=== PATIENT | male | born 1960 | race Caucasian/White ===

== ENCOUNTER 2020-05-11 01:50 | Outpatient (CLI) | payer OTHER, SELFPAY ==
[2020-05-11 18:54] LABS: SARS-CoV-2 RNA PCR Negative
== END 2020-05-11 01:51 | disposition home or self-care (01) ==
LOC: ANHCOVIDDT 01:51
PROVIDERS: PCP Family Medicine Adolescent Medicine; Visit Provider Surgery
DX: Z01.812 Encounter for preprocedural laboratory examination (principal); Z20.828 Contact with and (suspected) exposure to other viral communicable diseases
CPT/HCPCS: 87635; C9803; U0003

== ENCOUNTER 2020-05-13 00:34 | Day surgery (SDC) | payer OTHER, SELFPAY ==
[2020-04-30 12:50] VITALS: BMI 31.7
[2020-05-13] VITALS (7 sets, daily range): BP systolic 104–119; BP diastolic 66–73; PULSE 64–79; RESP 12–20; TEMP 36.1–36.3; O2SAT 98–100
--- NOTE | 2020-05-13 10:05 | WPDANESEPPF ---
Anes - Initial Pre Proc Eval Procedure: Operation Date: 05/13/20 12:00 Proposed Procedures p Rectal Exam Under Anesthesia With Hemorrhoidectomy - Tamy Bartlett MD Date/Time: 05/13/20 10:05 Surgeon: Tamy Bartlett MD Pre Op Diagnosis: Rectal Pain With Internal and External Hemrrhoids Patient Data Age: 59 Gender: M Height: 1.83 m Weight: 106.14 kg Last Vital Signs Temp 36.1 C L 05/13/20 09:52 Pulse 77 05/13/20 09:52 Resp 20 05/13/20 09:52 BP 119/69 05/13/20 09:52 Pulse Ox 98 05/13/20 09:52 Allergies Allergy/AdvReac Type Severity Reaction Status Date / Time No Known Allergies Allergy Verified 05/13/20 10:02 Home Medications Medication Instructions Recorded Confirmed Type esomeprazole magnesium 20 mg 20 mg PO DAILY 04/27/20 05/13/20 History capsule,delayed release sertraline 100 mg tablet 100 mg PO DAILY 04/27/20 05/13/20 History Patient hx anesthesia problems: none Family hx anesthesia problems: none PMFSH Past Medical History Medical History (Updated 05/13/20 @ 10:07 by Jay Sheth MD) Back pain Depression GERD (gastroesophageal reflux disease) Hypercholesterolemia Kidney stones Obesity Surgical History Surgical History History of surgery on arm Social History Social History Years smoked: 2 Smoking status: Former smoker Tobacco type: cigarettes Additional smoking assessment comments: QUIT 1983 Alcohol intake: never Substance use: never 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 Questions were solicited and answers provided to the satisfaction of the patient/family/POA.
[2020-05-13] MEDS: ACETAMINOPHEN 500 MG TABLET 1000 MG PO (10:17)
[2020-05-13] MEDS: KETOROLAC 15 MG/ML VIAL (*BKC) IV PUSH (10:17)
[2020-05-13] MEDS: LACTATED RINGERS 1,000 ML 30 ML IV CONT (10:20)
--- NOTE | 2020-05-13 12:25 | WPDHPUPDATE1 ---
History and Physical Update Update Date/Time: 05/13/20 12:25 History and Physical has been reviewed, including an updated exam of the patient. There are NO changes in the patient's condition. Risks, benefits, and alternatives have been discussed and questions answered. Patient agrees to proceed with procedure.
[2020-05-13] MEDS: ceFAZolin 2 GM/D5W 50 ML 2 GM/50 ML BAG IVPB (12:31)
[2020-05-13] MEDS: LIDOCAINE HCL 2% GEL UROJET 10 ML PKG MUCOUS MEM (12:58)
--- NOTE | 2020-05-13 13:39 | PM.PROC ---
Procedure Note - Detailed Date of procedure: 05/13/20 Pre-op diagnosis: Rectal Pain With Internal and External Hemrrhoids Post-op diagnosis: same Procedure performed: Two column internal hemorrhoidectomy, right anterior and left lateral columns, external hemorrhoidectomy Description of procedure: The patient was taken the operating room placed in the modified lithotomy position. After adequate induction of general anesthesia, the patient prepped and draped in the normal sterile fashion. A time-out was then done to verify the patient's identity, as well as the procedure being performed. A bilateral pudendal block was then done. I began by doing a digital rectal exam. Patient was noted to some external hemorrhoids on exam. I then used the anoscope to further examine anal canal. At this point, it was noted that the patient had hemorrhoids in all 3 columns, most severe in the right anterior and left lateral. At this point, I performed a 2 column internal hemorrhoidectomy. This was done using the LigaSure device. I first excised the right anterior column and this was followed by the left lateral column. Hemostasis was noted in both areas and intact in anoderm was noted. I then excised 2 external hemorrhoids again using the LigaSure device. Hemostasis was noted at these areas. At this point, I placed a piece of Gelfoam coated with lidocaine jelly into the rectal vault. Sterile dressing was then placed. The patient tolerated the procedure and was extubated in the operating room postop. He will be transferred recovery room in stable condition. Implants: none Anesthesia: GETA and local Surgeon: Tamy Bartlett MD Estimated blood loss (mL): 10 Drains: No Packing: No Pathology: yes Complications: No immediate complications Condition: stable Disposition: PACU Findings: 2 column internal hemorrhoidectomy excision of external hemorrhoids x2
== END 2020-05-13 14:46 | disposition home or self-care (01) ==
PROVIDERS: PCP Family Medicine Adolescent Medicine; Visit Provider Surgery
PROC: (CPT 46260; principal; 2020-05-13 12:00)
DX: K64.8 Other hemorrhoids (principal); K64.4 Residual hemorrhoidal skin tags; E78.00 Pure hypercholesterolemia, unspecified; K21.9 Gastro-esophageal reflux disease without esophagitis; F32.9 Major depressive disorder, single episode, unspecified; E66.9 Obesity, unspecified; Z68.31 Body mass index [BMI] 31.0-31.9, adult; Z87.891 Personal history of nicotine dependence
CPT/HCPCS: 46260; 88304; A9270; J0690; J1100; J1885; J2250; J2405; J2704; J3010; J7120

== ENCOUNTER 2023-01-05 15:46 | Emergency (ER) | payer OTHER, SELFPAY ==
--- NOTE | ~2023-01-05 | CT_ITS ---
EXAMINATION: CT abdomen pelvis wo con DATE: 01/05/2023 16:58 INDICATION: Flank pain TECHNIQUE: Computed tomography (CT) of the abdomen and pelvis was performed without intravenous contr ast. The dose-length product (DLP) was 1214.73 mGy-cm. Automated exposure control and iterative recon struction technique were employed. COMPARISON: None FINDINGS: Minimal dependent atelectasis is present in the lung bases. The heart size is normal. There is a moderate-sized sliding hiatal hernia. There is a 9 mm cyst of the left hepatic lobe. The spleen , pancreas, gallbladder, and adrenal glands are normal. There is a 2 mm stone in the proximal right u reter with mild right hydronephrosis. There is a predominantly cystic 5.4 x 5.3 cm mass of the right kidney which appears to contain some solid components not well evaluated in the absence of intravenou s contrast. Peripelvic cysts are noted in the left kidney. No pathologically enlarged abdominal or pe lvic lymph nodes are identified. The appendix is normal. There is moderate lumbar spondylosis at L4-5 and L5-S1. There is an umbilical hernia containing. IMPRESSION: 1. 2 mm stone of the proximal right ureter with mild right hydronephrosis. 2. Predominantly cystic right kidney mass with questionable solid components. Follow-up by nonemergen t CT or MRI without and with contrast is recommended. Reviewed, dictated and finalized at location F. IMPRESSION: 1. 2 mm stone of the proximal right ureter with mild right hydronephrosis. 2. Predominantly cystic right kidney mass with questionable solid components. F ollow-up by nonemergent CT or MRI without and with contrast is recommended.
[2023-01-05 15:53] VITALS: BP 129/75; PULSE 63; RESP 16; TEMP 36.2; O2SAT 99
[2023-01-05 16:14] LABS: Basophils Percent Auto 0.3 % (0.2-1.2); Eosinophils Absolute Auto 0.1 K/mm3 (0-0.3); Eosinophils Percent Auto 0.6 % (0-4.4); Hematocrit 45.6 % (42.0-52.0); Hemoglobin 15.1 g/dL (14.0-18.0); Immature Granulocyte Absolute 0.04 K/mm3 (0.00-0.031); Immature Granulocyte Percent A 0.3 % (0-0.5); Lymphocytes Absolute Auto 1.73 K/mm3 (0.9-3.2); Lymphocytes Percent Auto 15.1 % (18.3-44.2); Mean Corpuscular HGB Conc 33.1 g/dl (32-36); Mean Corpuscular Hemoglobin 31.6 pg (26-34); Mean Corpuscular Volume 95.4 fl (80-100); Mean Platelet Volume 10.3 fl (7.4-10.4); Monocytes Absolute Auto 0.7 K/mm3 (0.1-0.6); Monocytes Percent Auto 6.4 % (2.6-8.5); Neutrophils Absolute Auto 8.9 K/mm3 (1.3-6.7); Neutrophils Percent Auto 77.3 % (45.5-73.1); Platelet Count Result 211 k/mm3 (150-375); Red Blood Count 4.78 M/mm3 (4.6-6.20); White Blood Count 11.5 K/mm3 (4.5-10.0)
[2023-01-05 16:28] LABS: Alanine Aminotransferase 30 U/L (6-50); Albumin Level 4.4 g/dL (3.5-5.1); Alkaline Phosphatase 97 U/L (38-126); Anion Gap 10 mmol/L (8-16); Aspartate Amino Transferase 28 U/L (17-59); Bilirubin,Total 0.8 mg/dL (0.2-1.3); Blood Urea Nitrogen 20 mg/dL (9-20); Calcium 9.2 mg/dL (8.4-10.2); Carbon Dioxide 24 mmol/L (22-30); Chloride 107 mmol/L (98-107); Estimated CRCL calculation 102 ml/min; Estimated Glomerular Filt Rate > 60; Glucose 100 mg/dL (65-110); Potassium 4.1 mmol/L (3.4-5.0); Sodium 141 mmol/L (137-145)
[2023-01-05 16:40] LABS: Appearance Urine Cloudy (Clear); Bacteria Urine None Seen /hpf; Bilirubin Urine Negative (Negative); Blood Urine 3+ (Negative); Calcium Oxalate Crystals Urine Present /hpf; Color Urine Dark Yellow (Yellow); Glucose Urine UA Negative (Negative); Ketones Urine Trace mg/dL (Negative); Leukocyte Esterase Ur Trace LEU/UL (Negative); Nitrate Urine Negative (Negative); Protein Urine 1+ mg/dL (Negative); RBC Urine 51-100 /hpf (0-2); Specific Grav Ur 1.027 (1.001-1.035); Squamous Epithelial Cell Urine None seen /hpf (Few); WBC Urine 0-5 /hpf; pH Urine 5.5 (5.0-9.0)
[2023-01-05 16:42] LABS: Add Urine Microscopic? YES
--- NOTE | 2023-01-05 16:45 | ED.ABDPAIN ---
HPI - Abdominal Pain General Chief Complaint: Abdominal Pain Stated Complaint: GROIN PAIN Time Seen by Provider: 01/05/23 16:44 Source: patient and family History of Present Illness HPI narrative: 62 years old white male came from home by private car complaining of right lower back right flank aches over 4 weeks ago. Yesterday was moving heavy equipments and somehow twisted his lower back and started having more pain on the right lower back which is different than his chronic pain which she had for the last 4 weeks. He denies any fever, chills, nausea, vomiting, diarrhea or urinary symptoms. Pain worse with movement, better laying still. Related Data Home Medications Medication Instructions Recorded Confirmed omeprazole 20 mg tablet,delayed 20 mg PO DAILY 11/09/21 11/27/22 release Allergies Allergy/AdvReac Type Severity Reaction Status Date / Time No Known Allergies Allergy Verified 11/27/22 08:22 Review of Systems Review of Systems: All systems reviewed & are unremarkable except as noted in HPI and below PMFSH Past Medical History Medical History Abnormal colonoscopy 01/10 Benign polyps Repeat 01/20 Back pain Depression GERD (gastroesophageal reflux disease) Hypercholesterolemia Kidney stones Obesity Surgical History Surgical History H/O hemorrhoidectomy 05/13/2020 History of surgery on arm Family History Family History Father Cancer Mother Diabetes mellitus Sibling Cancer Diabetes mellitus Other Cancer Other Colon polyp Depression Social History Social History Years smoked: 2 Smoking status: Former smoker Tobacco type: cigarettes Additional smoking assessment comments: QUIT 1983 Alcohol intake: never Substance use: never Living arrangements: alone Occupation/Education: occupation 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 Musculoskeletal: Slight limited range of motion of the lumbar area, slight tenderness at the right lower back, no bruises, no rash no swelling. Neurologic: Alert and oriented ?3, DOCUMENT REVIEW SPECIALIST is normal as tested, no gross motor deficit Course Reevaluation(s) Reevaluation #1: Currently patient feeling much better after IV fluid and morphine and Zofran. Date: 01/05/23 Time: 18:42 Vital Signs Vital signs: Vital Signs Temperature 36.2 C L 01/05/23 15:53 Pulse Rate 63 01/05/23 15:53 Respiratory Rate 16 01/05/23 15:53 Blood Pressure 129/75 01/05/23 15:53 Pulse Oximetry 99 01/05/23 15:53 Oxygen Delivery Room Air 01/05/23 15:53 Temperature 36.2 C L 01/05/23 15:53 Pulse Rate 63 01/05/23 15:53 Respiratory Rate 16 01/05/23 15:53 Blood Pressure 129/75 01/05/23 15:53 Pulse Oximetry 99 01/05/23 15:53 Oxygen Delivery Room Air 01/05/23 15:53 MDM - Abdominal Pain MDM Narrative Medical decision making narrative: Patient presents with right lower back flank pain over 4 weeks, superi
[2023-01-05] MEDS: ONDANSETRON INJ 4 MG/2 ML VIAL IV PUSH (17:10)
[2023-01-05] MEDS: MORPHINE SULFATE (*CRX) 4 MG/ML INJ IV PUSH (17:10)
[2023-01-05] MEDS: SODIUM CHLORIDE 0.9% IV 1,000 ML 999 ML IV CONT (17:10)
[2023-01-05 18:41] VITALS: BP 131/81; PULSE 65; RESP 18; O2SAT 98
== END 2023-01-05 18:42 | disposition home or self-care (01) ==
PROVIDERS: Emergency Medicine; Emergency Provider Emergency Medicine; PCP Family Medicine Adolescent Medicine
DX: N13.2 Hydronephrosis with renal and ureteral calculous obstruction (principal); N28.89 Other specified disorders of kidney and ureter; E78.00 Pure hypercholesterolemia, unspecified; K21.9 Gastro-esophageal reflux disease without esophagitis; F32.A Depression, unspecified; Z87.891 Personal history of nicotine dependence; Z87.442 Personal history of urinary calculi
CPT/HCPCS: 36415; 74176; 80053; 81001; 85025; 96361; 96374; 96375; 99284; J2270; J2405; J7030

== ENCOUNTER 2023-02-15 12:29 | Outpatient (CLI) | payer OTHER, SELFPAY ==
--- NOTE | ~2023-02-15 | CT_ITS ---
EXAMINATION: CT abdomen pelvis wo/w con DATE: 02/15/2023 12:59 INDICATION: Kidney mass. TECHNIQUE: Computed tomography (CT) of the abdomen and pelvis was performed without and with 100 mL O mnipaque 350 intravenous contrast. Automated exposure control and iterative reconstruction technique were employed. The dose-length product was 1511.38 mGy-cm. COMPARISON: CT abdomen and pelvis 01/05/2023 FINDINGS: The visualized portions of the lung bases demonstrate mild atelectasis. No pleural effusion . The heart size is normal. No pericardial effusion. There is a moderate-sized sliding hiatal hernia. There is a 9 mm cyst in the liver. The gallbladder, spleen, pancreas, adrenal glands are normal. The re is a 5.3 cm enhancing mass in right kidney, consistent with renal cell carcinoma. There is a cyst in left kidney measuring up to 2.5 cm. There is an umbilical hernia containing fat. The prostate is m oderately enlarged. There are no dilated loops of bowel. The appendix is normal. There is prominent f at in right inguinal canal that may be a hernia. There is severe lumbar spondylosis. IMPRESSION: 1. 5.3 cm enhancing right kidney mass, consistent with renal cell carcinoma. 2. Moderate-sized sliding hiatal hernia. Reviewed, dictated and finalized at location E.
--- NOTE | ~2023-02-15 | CT_ITS ---
EXAMINATION:CT diagnostic chest w con DATE: 02/15/2023 12:59 INDICATION: Renal mass. TECHNIQUE: Computed tomography (CT) of the chest was performed with 150 mL Omnipaque 350 intravenous contrast. Automated exposure control and iterative reconstruction technique were employed. The dose-l ength product (DLP) was 376.94 mGy-cm. COMPARISON: CT abdomen and pelvis 01/05/2023 FINDINGS: The lungs demonstrate mild atelectasis. No pleural effusion. The heart size is normal. No p ericardial effusion. There are no pathologically enlarged lymph nodes. There is a moderate-sized slid ing hiatal hernia. There is moderate thoracic spondylosis. IMPRESSION: 1. Moderate-sized sliding hiatal hernia. Reviewed, dictated and finalized at location E.
[2023-02-15 12:52] LABS: Estimated Glomerular Filt Rate > 60
== END 2023-02-15 12:30 | disposition home or self-care (01) ==
PROVIDERS: PCP Family Medicine Adolescent Medicine
DX: N28.89 Other specified disorders of kidney and ureter (principal); K44.9 Diaphragmatic hernia without obstruction or gangrene
CPT/HCPCS: 71260; 74178; Q9967

== ENCOUNTER 2023-06-25 06:50 | Outpatient (CLI) | payer OTHER, SELFPAY ==
--- NOTE | ~2023-06-25 | CT_ITS ---
EXAMINATION: CT chest abdomen pelvis w con DATE: 06/25/2023 07:17 INDICATION: Renal cell carcinoma. TECHNIQUE: Computed tomography (CT) of the chest, abdomen, and pelvis was performed with 100 mL Omnip aque 350 intravenous contrast. Automated exposure control and iterative reconstruction technique were employed. The dose-length product was 1693.57 mGy-cm. COMPARISON: Chest CT 02/15/2023, CT abdomen and pelvis 02/15/2023 FINDINGS: CHEST CT: There is mild scarring at the lung apices. There is mild atelectasis bilaterally. There is mild scarr ing in paraspinal right lower lobe. No pleural effusion. The heart size is normal. No pericardial eff usion. There is a moderate-sized sliding hiatal hernia. There is moderate thoracic spondylosis. There is mild chronic anterior wedging of multiple vertebral bodies. ABDOMEN/PELVIS CT: There is a 12 mm cyst in the liver. The gallbladder, spleen, pancreas, and adrenal glands are normal. There are changes of right nephrectomy. There are cysts in left kidney measuring up to 3.0 cm. There is an umbilical hernia containing fat. The prostate is moderately enlarged. There is a right inguina l hernia containing fat. There are no dilated loops of bowel. The appendix is normal. There are no pa thologically enlarged lymph nodes. There is no free intraperitoneal fluid. There is severe lumbar spo ndylosis. IMPRESSION: 1. No evidence of metastatic disease. 2. Moderate-sized sliding hiatal hernia. Reviewed, dictated and finalized at location E.
[2023-06-25 07:11] LABS: Estimated Glomerular Filt Rate 44
== END 2023-06-25 06:51 | disposition home or self-care (01) ==
LOC: ANHIMG 06:52
PROVIDERS: PCP Family Medicine Adolescent Medicine
DX: C64.9 Malignant neoplasm of unspecified kidney, except renal pelvis (principal); K44.9 Diaphragmatic hernia without obstruction or gangrene
CPT/HCPCS: 71260; 74177; Q9967